=== PATIENT | male | born 1995 | race Caucasian/White ===

== ENCOUNTER → 2021-02-19 | Outpatient (CLI) | payer BC ==
[~2021-02-19] MED LIST: GABA300C18 PO; GUAN4TAB12 PO; IMIP50TA3 PO; LANS30CA66 PO; LEVO50TA5 PO; LISD70CA5 PO; METO-269 PO; OMEG1CAP2 PO
--- NOTE | 2021-02-19 16:18 | CARD ---
MR#: [id number] Date of Study: 02/19/2021 Ordering Physician: DENNY FERNANDEZ, Referring Physician: DENNY FERNANDEZ, Tech: Jaron Mon [facility] APPROVED REPORT EXAM: Two-dimensional and M-mode echocardiogram with Doppler and color Doppler. Other Information Quality : FairHR: 70bpm Rhythm : NSRTechnically limited study due to body habitus. INDICATION Chest Pain RISK FACTORS Obesity 2D DIMENSIONS Left Atrium(2D)3.2 (1.6-4.0cm)IVSd0.8 (0.7-1.1cm) Aortic Root(2D)3.0 (2.0-3.7cm)LVDd5.7 (3.9-5.9cm) LVOT Diameter2.0 (1.8-2.4cm)PWd0.8 (0.7-1.1cm) LVDs4.4 (2.5-4.0cm)FS (%) 23.3 % SV73.4 ml Aortic Valve AoV Peak Carlton.129.3cm/sAoV VTI24.5cm AO Peak GR.6.7mmHgLVOT Peak Carlton.70.0cm/s AO Mean GR.3mmHgAVA (VMAX)1.63cm2 Mitral Valve MV E Rswpubcg61.4cm/sMV E Peak Gr.4mmHg MV DECEL [id number] A Unmfgqrd20.5cm/s MV E Mean Gr.2mmHgE/A Ratio1.6 Pulmonary Valve PV Peak Mbxzizsb618.5cm/s Tricuspid Valve TR P. Tbyzbonr939mm/sTR Peak Gr.23mmHg Pulmonary Vein S1 Pkhaakte11.4cm/sD2 Vvhcjrit21.4cm/s LEFT VENTRICLE The Left Ventricle is borderline dilated. There is normal left ventricular wall thickness. LV systoli c function is mildly decreased. LV ejection fraction is 40 to 45%. There is mildl global hypokinesis of the left ventricle. No left ventricle thrombus noted on this study. There is no ventricular septal defect visualized. There is no left ventricular aneurysm. There is no mass noted in the left ventric le. RIGHT VENTRICLE The right ventricle is normal size. There is normal right ventricular wall thickness. The right ventr icular systolic function is normal. ATRIA The left atrium size is normal. The right atrium size is normal. The interatrial septum is intact wit h no evidence for an atrial septal defect or patent foramen ovale as noted on 2-D or Doppler imaging. AORTIC VALVE The aortic valve is normal in structure and function. Doppler and Color Flow revealed no significant aortic regurgitation. There is no significant aortic valvular stenosis. There is no aortic valvular v egetation. MITRAL VALVE The mitral valve is normal in structure and function. There is no evidence of mitral valve prolapse. There is no mitral valve stenosis. Doppler and Color Flow revealed no mitral valve regurgitation note d. TRICUSPID VALVE The tricuspid valve is normal in structure and function. Doppler and Color Flow revealed trace tricus pid regurgitation. There is no tricuspid valve prolapse or vegetation. There is no tricuspid valve st enosis. PULMONIC VALVE The pulmonary valve is normal in structure and function. There is mild pulmonic regurgitation There i s no pulmonic valvular stenosis. GREAT VESSELS The aortic root is normal in size. The ascending aorta is normal in size. The pulmonary artery is nor mal. The IVC is normal in size and collapses >50% with inspiration. PERICARDIAL EFFUSION There is no pleural effusion. There is no evidence of significant pericardial effusion. Critical Notification Critical Value: No <Conclusion> The Left Ventricle is borderline dilated. LV systolic function is mildly decreased. LV ejection fraction is 40 to 45%. There is mildl global hypokinesis of the left ventricle. Doppler and Color Flow revealed no significant aortic regurgitation. There is no significant aortic valvular stenosis. Doppler and Color Flow revealed no mitral valve regurgitation noted. Doppler and Color Flow revealed trace tricuspid regurgitation. Signed by : Matthew Adknis MD Electronically Approved : 02/19/2021 16:18:18
== END ==
LOC: ECHO 10:49
PROVIDERS: ATTEND Internal Medicine Cardiovascular Disease
DX: I37.1 Nonrheumatic pulmonary valve insufficiency (principal); R07.9 Chest pain, unspecified
CPT/HCPCS: 93306